=== PATIENT | male | born 1955 | race Caucasian/White ===

== ENCOUNTER 2020-01-27 10:15 | Day surgery (SDC) | payer MEDICARE, OTHER ==
[2020-01-27] VITALS (12 sets, daily range): BP systolic 85–105; BP diastolic 44–75
[~2020-01-27] VITALS: Ht 182.9 cm; Wt 109.8 kg
[~2020-01-27 10:15] MED LIST: NORCO10T PO; OXYC40TA39 PO; SERT-153 PO; VAL5T PO; ZOLP5TAB8 PO
[2020-01-27] MEDS ORDERED: MIDAZolam 1mg/ml 10ml vial IV ONE (10:45)
[2020-01-27] MEDS ORDERED: normal saline 1000ml 1,000 ML IV SCH (10:45)
[2020-01-27] MEDS ORDERED: fentaNYL/PF 50MCG/1 ML 2ML syringe IV ONE (10:45)
[2020-01-27 12:02] LABS: BASOPHILS % (AUTO) 0.6 % (0-1); EOSINOPHILS % (AUTO) 0.5 % (0-6); HEMATOCRIT 37.4 % (42.0-52.0); HEMOGLOBIN 11.7 g/dl (14.0-17.9); LYMPHOCYTES # (AUTO) 2.3 X10'3 (1.1-4.8); LYMPHOCYTES % (AUTO) 28.2 % (21-51); MEAN CORPUSCULAR HEMOGLOBIN 23.5 PG (27.0-31.0); MEAN CORPUSCULAR HGB CONC 31.3 g/dL (33.0-36.5); MEAN CORPUSCULAR VOLUME 74.9 FL (78-98); MEAN PLATELET VOLUME 8.2 FL (7.4-10.4); MONOCYTES # (AUTO) 0.4 X10'3 (0-0.9); MONOCYTES % (AUTO) 4.9 % (2-12); NEUTROPHILS # (AUTO) 5.3 X10'3 (1.8-7.7); NEUTROPHILS % (AUTO) 65.8 % (42-75); PLATELET COUNT 339 X10'3 (140-440); RED CELL DISTRIBUTION WIDTH 23.5 % (11.5-14.5)
[2020-01-27 12:12] LABS: ALBUMIN 3.4 G/DL (3.4-5.0); ANION GAP 7 (8-16); BLOOD UREA NITROGEN 12 MG/DL (7-18); BUN/CREATININE RATIO 14.3 (5.4-32.0); CALCIUM 8.8 MG/DL (8.5-10.1); CHLORIDE 108 MMOL/L (99-107); CREATININE 0.84 MG/DL (0.60-1.10); GLUCOSE 100 MG/DL (70-104); POTASSIUM 4.2 MMOL/L (3.5-5.1); SODIUM 141 MMOL/L (135-145); TOTAL CARBON DIOXIDE 26.4 MMOL/L (24-32); eGFR > 90 ML/MIN
[2020-01-27 12:18] LABS: ANISOCYTOSIS 3+; MICROCYTOSIS 1+; PLATELET ESTIMATE NORMAL
[2020-01-27 12:19] LABS: HYPOCHROMASIA 1+; SCHISTOCYTES FEW
[2020-01-27 12:20] LABS: ELLIPTOCYTES 1+
[2020-01-27] MEDS ORDERED: PANT20TA3 PO (12:25)
[2020-01-27] MEDS ORDERED: OLAN7.5T9 PO (12:25)
[2020-01-27] MEDS ORDERED: METO100T14 PO (12:25)
[2020-01-27] MEDS ORDERED: AMPH20TA3 PO ×2 (12:25)
[2020-01-27] MEDS ORDERED: PROP20TA6 PO (12:25)
[2020-01-27] MEDS ORDERED: TEST5GEL2 TOP (12:25)
[2020-01-27] MEDS ORDERED: TRAZ150T78 PO (12:26)
[2020-01-27] MEDS ORDERED: GABA-532 PO (12:26)
[2020-01-27] MEDS ORDERED: APIX5TAB3 PO (12:26)
[2020-01-27] MEDS ORDERED: BACL20TA PO (12:26)
== END 2020-01-27 12:50 | disposition home or self-care (01) ==
LOC: SSTAY O 10:15 → MED 3N 10:21 → SSTAY O 12:50
PROVIDERS: ATTEND Internal Medicine Interventional Cardiology
DX: I48.0 Paroxysmal atrial fibrillation (principal); I48.92 Unspecified atrial flutter; G47.33 Obstructive sleep apnea (adult) (pediatric); I10 Essential (primary) hypertension; E66.9 Obesity, unspecified; Z68.36 Body mass index [BMI] 36.0-36.9, adult; I35.0 Nonrheumatic aortic (valve) stenosis; M19.90 Unspecified osteoarthritis, unspecified site; I27.23 Pulmonary hypertension due to lung diseases and hypoxia; J44.9 Chronic obstructive pulmonary disease, unspecified; F31.9 Bipolar disorder, unspecified; Z98.84 Bariatric surgery status; Z88.8 Allergy status to other drugs, medicaments and biological substances
CPT/HCPCS: 36415; 80048; 85025; 92960; 93005; J2250; J3010; J7030

== ENCOUNTER 2022-10-10 11:26 | Day surgery (SDC) | payer MEDICARE, MEDICAID ==
[2022-10-05 15:46] LABS: BASOPHILS # (AUTO) 0.1 X10'3 (0-0.2); BASOPHILS % (AUTO) 0.9 % (0-1); EOSINOPHILS # (AUTO) 0.1 X10'3 (0-0.9); EOSINOPHILS % (AUTO) 1.2 % (0-6); HEMATOCRIT 36.9 % (42.0-52.0); HEMOGLOBIN 12.1 g/dl (14.0-17.9); LYMPHOCYTES # (AUTO) 1.7 X10'3 (1.1-4.8); LYMPHOCYTES % (AUTO) 21.2 % (21-51); MEAN CORPUSCULAR HEMOGLOBIN 28.1 PG (27.0-31.0); MEAN CORPUSCULAR HGB CONC 32.7 g/dL (33.0-36.5); MEAN CORPUSCULAR VOLUME 85.8 FL (78-98); MEAN PLATELET VOLUME 7.8 FL (7.4-10.4); MONOCYTES # (AUTO) 0.4 X10'3 (0-0.9); MONOCYTES % (AUTO) 5.3 % (2-12); NEUTROPHILS # (AUTO) 5.6 X10'3 (1.8-7.7); NEUTROPHILS % (AUTO) 71.4 % (42-75); PLATELET COUNT 411 X10'3 (140-440); WHITE BLOOD COUNT 7.9 X10'3 (4.5-11.0)
[2022-10-05 15:58] LABS: APTT 32 SECONDS (22-32)
[2022-10-05 16:01] LABS: ALBUMIN 2.7 G/DL (3.4-5.0); ANION GAP 10 (8-16); BLOOD UREA NITROGEN 17 MG/DL (7-18); BUN/CREATININE RATIO 16.5 (5.4-32.0); CALCIUM 8.5 MG/DL (8.5-10.1); CHLORIDE 104 MMOL/L (99-107); CREATININE 1.03 MG/DL (0.60-1.10); GLUCOSE 120 MG/DL (70-104); POTASSIUM 4.7 MMOL/L (3.5-5.1); SODIUM 137 MMOL/L (135-145); TOTAL CARBON DIOXIDE 23.4 MMOL/L (24-32); eGFR 73 ML/MIN
[~2022-10-10] VITALS: Ht 182.9 cm; Wt 95.6 kg
[2022-10-10] VITALS (18 sets, daily range): BP systolic 98–119; BP diastolic 50–78
[~2022-10-10 11:26] MED LIST changes: +AMPH20TA3 PO; +APIX5TAB3 PO; +BACL20TA PO; +GABA-532 PO; +METO100T14 PO; -NORCO10T PO; +OLAN7.5T18 PO; -OXYC40TA39 PO; +PANT20TA18 PO; +PROP20TA6 PO; -SERT-153 PO; +TEST5GEL2 TOP; +TRAZ150T78 PO; -VAL5T PO; -ZOLP5TAB8 PO
[2022-10-10] MEDS ORDERED: fentaNYL/PF 50MCG/1 ML 2ML syringe IV ONE (11:45)
[2022-10-10] MEDS ORDERED: normal saline 1000ml 1,000 ML IV SCH (11:45)
[2022-10-10] MEDS ORDERED: MIDAZolam 1mg/ml 10ml vial IV ONE (11:45)
[2022-10-10] MEDS ORDERED: METO-384 PO (11:49)
[2022-10-10] MEDS ORDERED: OLAN20TA34 PO (11:50)
[2022-10-10] MEDS ORDERED: HYDR50CA PO (11:51)
[2022-10-10] MEDS ORDERED: ARIP5TAB60 PO (11:52)
[2022-10-10] MEDS ORDERED: BENZ2TAB7 PO (11:52)
[2022-10-10] MEDS ORDERED: AMIO200T61 PO (11:53)
[2022-10-10] MEDS ORDERED: SACU1TAB PO (11:54)
[2022-10-10] MEDS ORDERED: SPIR25TA5 PO (11:54)
== END 2022-10-10 15:15 | disposition home or self-care (01) ==
LOC: SSTAY O 11:26
PROVIDERS: ATTEND Student in an Organized Health Care Education/Training Program
DX: I48.91 Unspecified atrial fibrillation (principal); I11.0 Hypertensive heart disease with heart failure; I50.9 Heart failure, unspecified; G47.33 Obstructive sleep apnea (adult) (pediatric); J44.9 Chronic obstructive pulmonary disease, unspecified; I35.0 Nonrheumatic aortic (valve) stenosis; I42.0 Dilated cardiomyopathy; M19.90 Unspecified osteoarthritis, unspecified site; G89.29 Other chronic pain; F31.9 Bipolar disorder, unspecified; I48.92 Unspecified atrial flutter; I27.23 Pulmonary hypertension due to lung diseases and hypoxia; F12.90 Cannabis use, unspecified, uncomplicated; Z88.8 Allergy status to other drugs, medicaments and biological substances; Z98.84 Bariatric surgery status; Z98.890 Other specified postprocedural states; Z96.653 Presence of artificial knee joint, bilateral; Z96.643 Presence of artificial hip joint, bilateral; Z82.49 Family history of ischemic heart disease and other diseases of the circulatory system; Z79.01 Long term (current) use of anticoagulants; Z79.899 Other long term (current) drug therapy; Z87.891 Personal history of nicotine dependence
CPT/HCPCS: 36415; 80048; 85025; 85610; 85730; 92960; 93005; J7030; A4620

== ENCOUNTER 2022-12-26 08:53 | Day surgery (SDC) | payer MEDICARE, MEDICAID ==
[2022-12-21 16:06] LABS: APTT 36 SECONDS (22-32)
[2022-12-21 16:10] LABS: ALBUMIN 3.2 G/DL (3.4-5.0); ANION GAP 8 (8-16); BLOOD UREA NITROGEN 13 MG/DL (7-18); BUN/CREATININE RATIO 15.7 (5.4-32.0); CHLORIDE 103 MMOL/L (99-107); CHOL/HDL RATIO 3.1 (0.00-4.99); CHOLESTEROL 177 MG/DL (0-200); CREATININE 0.83 MG/DL (0.60-1.10); GLUCOSE 89 MG/DL (70-104); HDL CHOLESTEROL 57 MG/DL (35-60); LDL CHOLESTEROL 105 MG/DL (50-100); POTASSIUM 3.9 MMOL/L (3.5-5.1); SODIUM 138 MMOL/L (135-145); TOTAL CARBON DIOXIDE 27.4 MMOL/L (24-32); TRIGLYCERIDES 44 MG/DL (20-135); eGFR > 90 ML/MIN
[2022-12-21 16:20] LABS: BASOPHILS % (AUTO) 0.6 % (0-1); EOSINOPHILS # (AUTO) 0.1 X10'3 (0-0.9); EOSINOPHILS % (AUTO) 1.3 % (0-6); HEMATOCRIT 37.4 % (42.0-52.0); HEMOGLOBIN 12.4 g/dl (14.0-17.9); LYMPHOCYTES # (AUTO) 1.7 X10'3 (1.1-4.8); LYMPHOCYTES % (AUTO) 19.3 % (21-51); MEAN CORPUSCULAR HEMOGLOBIN 28.9 PG (27.0-31.0); MEAN CORPUSCULAR HGB CONC 33.1 g/dL (33.0-36.5); MEAN CORPUSCULAR VOLUME 87.3 FL (78-98); MONOCYTES # (AUTO) 0.4 X10'3 (0-0.9); MONOCYTES % (AUTO) 4.1 % (2-12); NEUTROPHILS # (AUTO) 6.5 X10'3 (1.8-7.7); NEUTROPHILS % (AUTO) 74.7 % (42-75); PLATELET COUNT 413 X10'3 (140-440); RED BLOOD COUNT 4.29 X10'6 (4.70-6.10); RED CELL DISTRIBUTION WIDTH 18.9 % (11.5-14.5); WHITE BLOOD COUNT 8.6 X10'3 (4.5-11.0)
[2022-12-21 16:58] LABS: ANISOCYTOSIS 2+; ELLIPTOCYTES FEW; PLATELET ESTIMATE NORMAL
[~2022-12-26] VITALS: Ht 182.9 cm; Wt 86.9 kg
[2022-12-26] VITALS (9 sets, daily range): BP systolic 111–147; BP diastolic 67–93
[~2022-12-26 08:53] MED LIST changes: +AMIO200T61 PO; +ARIP5TAB60 PO; +BENZ2TAB7 PO; +HYDR50CA PO; +METO-384 PO; -METO100T14 PO; +OLAN20TA34 PO; -OLAN7.5T18 PO; -PROP20TA6 PO; +SACU1TAB PO; +SPIR25TA5 PO; -TRAZ150T78 PO
[2022-12-26] MEDS ORDERED: LORazepam 0.5 MG tablet PO PRN (09:15)
[2022-12-26] MEDS ORDERED: normal saline 1,000 ML IV SCH (09:15)
[2022-12-26] MEDS ORDERED: diphenhydrAMINE 25mg capsule PO PRN (09:15)
[2022-12-26] MEDS ORDERED: EMPA10TA PO (09:24)
[2022-12-26] MEDS ORDERED: CYAN250010 INJ (09:25)
[2022-12-26] MEDS ORDERED: verapamil 2.5 mg/ml inj IV ONE (10:37)
[2022-12-26] MEDS ORDERED: midazolam 1 mg/ML 2ml injection ONE ×2 (10:37→11:33)
[2022-12-26] MEDS ORDERED: LIDOcaine 1% (10mg/ml) 2ml vial ONE (10:37)
[2022-12-26] MEDS ORDERED: nitroGLYCERIN-Tridil 50MG/D5W 250 ML IV ONE (10:37)
[2022-12-26] MEDS ORDERED: fentaNYL/PF 50MCG/1 ML 2ML syringe ONE ×2 (10:37→11:33)
[2022-12-26] MEDS ORDERED: heparin 1,000unit/ml 10ml vial 10 ML ONE (10:38)
[2022-12-26] MEDS ORDERED: iohexol 350MG/ML 100ml bottle IV ONE (10:38)
[2022-12-26] MEDS ORDERED: heparin 1,000 UNITS/NS 500ml 500 ML ONE (11:17)
[2022-12-26] MEDS ORDERED: LIDOcaine 1% 30ml preserv. free vial ONE (11:37)
[2022-12-26] MEDS ORDERED: HYDROmorphone 1 mg/ml syringe ONE (11:48)
[2022-12-26 12:44] LABS: ISTAT HGB ART 12.6 g/dl (14.0-17.9); ISTAT Hct ART 37 %PCV (42-52); ISTAT O2 SATURATION ARTERIAL 91 % (95-98); ISTAT SOURCE ART
[2022-12-26] MEDS ORDERED: HYDROcodone/acetaminophen 10/325mg tab PO PRN (12:55)
[2022-12-26] MEDS ORDERED: HYDROcodone/acetaminophen 5mg/325mg tablet PO PRN (12:55)
[2022-12-26 13:54] LABS: ISTAT Hct MIX 35 %PCV (42-52); ISTAT O2 SATURATION MIX VENOUS 65 % (60-80); ISTAT SOURCE VEN
== END 2022-12-26 15:17 | disposition home or self-care (01) ==
LOC: SSTAY O 08:53
PROVIDERS: ATTEND Student in an Organized Health Care Education/Training Program
DX: I08.3 Combined rheumatic disorders of mitral, aortic and tricuspid valves (principal); J44.9 Chronic obstructive pulmonary disease, unspecified; G47.33 Obstructive sleep apnea (adult) (pediatric); I11.0 Hypertensive heart disease with heart failure; I50.9 Heart failure, unspecified; I65.29 Occlusion and stenosis of unspecified carotid artery; I42.0 Dilated cardiomyopathy; I48.0 Paroxysmal atrial fibrillation; F31.9 Bipolar disorder, unspecified; I27.20 Pulmonary hypertension, unspecified; F17.290 Nicotine dependence, other tobacco product, uncomplicated; G89.29 Other chronic pain; E78.5 Hyperlipidemia, unspecified; Z98.84 Bariatric surgery status; Z79.899 Other long term (current) drug therapy; Z79.01 Long term (current) use of anticoagulants; Z88.8 Allergy status to other drugs, medicaments and biological substances
CPT/HCPCS: 36415; 76937; 80048; 80061; 82803; 85014; 85025; 85610; 85730; 93005; 93456; 99152; 99153; C1751; C1769; C1894; J1170; J1644; J2250; J3010; J3490; J7030; Q0163; Q9967; 85008; A6258; A6402

== ENCOUNTER 2023-05-15 11:47 | Day surgery (SDC) | payer MEDICARE, MEDICAID ==
[2023-05-11 12:16] LABS: BASOPHILS # (AUTO) 0.1 X10'3 (0-0.2); BASOPHILS % (AUTO) 0.7 % (0-1); EOSINOPHILS # (AUTO) 0.2 X10'3 (0-0.9); EOSINOPHILS % (AUTO) 2.2 % (0-6); HEMATOCRIT 41.3 % (42.0-52.0); HEMOGLOBIN 13.8 g/dl (14.0-17.9); MEAN CORPUSCULAR HEMOGLOBIN 30.4 PG (27.0-31.0); MEAN CORPUSCULAR HGB CONC 33.5 g/dL (33.0-36.5); MEAN CORPUSCULAR VOLUME 90.7 FL (78-98); MEAN PLATELET VOLUME 8.3 FL (7.4-10.4); MONOCYTES # (AUTO) 0.5 X10'3 (0-0.9); MONOCYTES % (AUTO) 5.1 % (2-12); NEUTROPHILS # (AUTO) 7.7 X10'3 (1.8-7.7); PLATELET COUNT 243 X10'3 (140-440); RED BLOOD COUNT 4.55 X10'6 (4.70-6.10); RED CELL DISTRIBUTION WIDTH 14.5 % (11.5-14.5); WHITE BLOOD COUNT 10.6 X10'3 (4.5-11.0)
[2023-05-11 12:23] LABS: ALBUMIN 3.4 G/DL (3.4-5.0); ANION GAP 8 (8-16); BLOOD UREA NITROGEN 16 MG/DL (7-18); BUN/CREATININE RATIO 15.7 (10.0-20.0); CALCIUM 9.4 MG/DL (8.5-10.1); CHLORIDE 103 MMOL/L (99-107); CREATININE 1.02 MG/DL (0.60-1.10); GLUCOSE 100 MG/DL (70-104); POTASSIUM 4.5 MMOL/L (3.5-5.1); SODIUM 138 MMOL/L (135-145); TOTAL CARBON DIOXIDE 26.9 MMOL/L (24-32); eGFR 73 ML/MIN
[2023-05-11 12:26] LABS: APTT 33 SECONDS (22-32)
[2023-05-14 12:05] VITALS: BP 111/69; PULSE 95; RESP 16; TEMP 98.2; O2SAT 97
[2023-05-15] VITALS (10 sets, daily range): BP systolic 117–135; BP diastolic 63–83; PULSE 69–92; RESP 14–16; O2SAT 96–99
[~2023-05-15] VITALS: Ht 180.3 cm; Wt 96.9 kg
[~2023-05-15 11:47] MED LIST changes: +AMI200T PO; -AMIO200T61 PO; +BENZ2TAB65 PO; -BENZ2TAB7 PO; +CALC200T PO; +CHOL10006 PO; +DEXT20TA6 PO; +EMPA10TA PO; +FERR-119 PO; -GABA-532 PO; -HYDR50CA PO; -METO-384 PO; +METO-395 PO; +MULT-1074 PO; -TEST5GEL2 TOP; +VITA400T10 PO; +VITAMIN B12 INJ IJ; +ZINC50CA2 PO
[2023-05-15] MEDS ORDERED: fentaNYL/PF 50MCG/1 ML 2ML syringe IV ONE (12:05)
[2023-05-15] MEDS ORDERED: normal saline 1000ml 1,000 ML IV SCH (12:05)
[2023-05-15] MEDS ORDERED: MIDAZolam 1mg/ml 10ml vial IV ONE (12:05)
== END 2023-05-15 14:15 | disposition home or self-care (01) ==
LOC: SSTAY O 11:47
PROVIDERS: ATTEND Student in an Organized Health Care Education/Training Program
DX: I48.92 Unspecified atrial flutter (principal); I48.0 Paroxysmal atrial fibrillation; I42.0 Dilated cardiomyopathy; G89.29 Other chronic pain; F31.9 Bipolar disorder, unspecified; I27.20 Pulmonary hypertension, unspecified; J44.9 Chronic obstructive pulmonary disease, unspecified; I11.0 Hypertensive heart disease with heart failure; I50.9 Heart failure, unspecified; I08.3 Combined rheumatic disorders of mitral, aortic and tricuspid valves; G47.33 Obstructive sleep apnea (adult) (pediatric); Z88.8 Allergy status to other drugs, medicaments and biological substances; Z79.899 Other long term (current) drug therapy; Z79.01 Long term (current) use of anticoagulants; Z86.73 Personal history of transient ischemic attack (TIA), and cerebral infarction without residual deficits
CPT/HCPCS: 36415; 80048; 85025; 85610; 85730; 92960; 93005; J2250; J3010; J7030; A4620

== ENCOUNTER 2024-06-05 10:18 | Day surgery (SDC) | payer MEDICARE, MEDICAID ==
[2024-06-05] VITALS (8 sets, daily range): BP systolic 122–141; BP diastolic 58–70; PULSE 59–68; RESP 7–27; TEMP 97.1; O2SAT 92–99
[~2024-06-05] VITALS: Ht 175.3 cm; Wt 108.2 kg
[2024-06-05] MEDS: cefazolin 2gm/D5W 100mL 100 ML IV ONE (05:30)
[2024-06-05] MEDS: DOCUMENT DATE & TIME OF BETA-BLOCKER PO ONE (05:30)
[~2024-06-05 10:18] MED LIST changes: -ARIP5TAB60 PO; +BACL10TA2 PO; -BACL20TA PO; -BENZ2TAB65 PO; -CALC200T PO; -CHOL10006 PO; -DEXT20TA6 PO; -FERR-119 PO; -MULT-1074 PO; +OLAN20TA19 PO; -OLAN20TA34 PO; +TRAZ-256 PO; +VALB80CA PO; -VITA400T10 PO; -VITAMIN B12 INJ IJ; -ZINC50CA2 PO; +[UNRECOGNIZED DRUG - CODE] PO
[2024-06-05] MEDS: famotidine 20mg tablet PO ONE (11:39)
[2024-06-05] MEDS: ringers solution, lacted 1,000 ML IV SCH (11:40)
[2024-06-05 12:03] LABS: BASOPHILS # (AUTO) 0.1 X10'3 (0-0.2); BASOPHILS % (AUTO) 0.6 % (0-1); EOSINOPHILS # (AUTO) 0.1 X10'3 (0-0.9); EOSINOPHILS % (AUTO) 1.2 % (0-6); LYMPHOCYTES % (AUTO) 19.4 % (21-51); MEAN CORPUSCULAR HEMOGLOBIN 31.7 PG (27.0-31.0); MEAN CORPUSCULAR HGB CONC 33.4 g/dL (33.0-36.5); MEAN CORPUSCULAR VOLUME 94.9 FL (78-98); MEAN PLATELET VOLUME 7.7 FL (7.4-10.4); MONOCYTES # (AUTO) 0.5 X10'3 (0-0.9); NEUTROPHILS # (AUTO) 7.6 X10'3 (1.8-7.7); NEUTROPHILS % (AUTO) 73.8 % (42-75); PRE OP HEMATOCRIT 38.1 % (42.0-52.0); PRE OP HEMOGLOBIN 12.7 g/dL (14.0-17.9); PRE OP PLATELET COUNT 355 X10'3 (140-440); PRE OP WHITE BLOOD COUNT 10.3 10'3 (4.8-10.8); RED BLOOD COUNT 4.01 X10'6 (4.70-6.10)
[2024-06-05 12:13] LABS: ALBUMIN 3.3 G/DL (3.4-5.0); ALBUMIN/GLOBULIN RATIO 0.7 (1.1-1.5); ALKALINE PHOSPHATASE 100 IU/L (46-116); BLOOD UREA NITROGEN 20 MG/DL (7-18); BUN/CREATININE RATIO 24.1 (10.0-20.0); CALCIUM 9.4 MG/DL (8.5-10.1); CHLORIDE 104 MMOL/L (99-107); CREATININE 0.83 MG/DL (0.60-1.10); PRE OP ALT 28 U/L (30-65); PRE OP ANION GAP 8 (8-16); PRE OP AST 30 U/L (10-37); PRE OP BILIRUB, TOTAL 0.3 MG/DL (0.0-1.0); PRE OP GLUCOSE 98 MG/DL (70-104); PRE OP POTASSIUM 4.3 MMOL/L (3.4-5.1); PRE OP SODIUM 138 MMOL/L (135-145); TOTAL CARBON DIOXIDE 26.2 MMOL/L (24-32); TOTAL PROTEIN 7.8 G/DL (6.4-8.2); eCRCL 88 ML/MIN; eGFR > 90 ML/MIN
[2024-06-05] MEDS ORDERED: methylene blue (5mg/ml) 50mg/10ml ampul IV ONE (12:14)
[2024-06-05] MEDS ORDERED: tobramycin sulfate 1.2gm vial ONE (12:14)
[2024-06-05 12:32] LABS: PRE OP PARTIAL THROMB. TIME 28 SECONDS (22-32); PROTHROMBIN TIME 10.9 SECONDS (9.0-12.0)
[2024-06-05] MEDS ORDERED: cloNIDine hcl/PF 100mcg/ml inj ONE (12:46)
[2024-06-05] MEDS ORDERED: HYDROmorphone/PF 0.2 MG/ML SYRINGE IV PRN ×2 (13:35)
[2024-06-05] MEDS ORDERED: morphine 2 MG/ML inj. syringe IV PRN (13:35)
[2024-06-05] MEDS ORDERED: proCHLORperazine 10 MG/2 ml inj IV PRN (13:35)
[2024-06-05] MEDS ORDERED: labetalol 20mg/4ml (5mg/ml) syringe IV PRN (13:35)
[2024-06-05] MEDS ORDERED: ringers solution, lacted 1,000 ML IV SCH (13:35)
[2024-06-05] MEDS ORDERED: morphine 4 MG/ML inj SYRINge IV PRN (13:35)
[2024-06-05] MEDS ORDERED: hydrALAZINE 20mg/ml inj. IV PRN (13:35)
[2024-06-05] MEDS ORDERED: sevoflurane 250ml liquid IH ONE (13:54)
[2024-06-05] MEDS ORDERED: midazolam 1 mg/ML 2ml injection ONE (14:01)
[2024-06-05] MEDS ORDERED: fentaNYL /PF 50mcg/ml 5ml ampule ONE (14:29)
[2024-06-05] MEDS ORDERED: propofol inj 20 ML IV ONE (14:29)
[2024-06-05] MEDS ORDERED: ROPIVAcaine 0.5% (5mg/ml) 30ml vial ONE (14:29)
[2024-06-05] MEDS ORDERED: LIDOcaine 2% (20mg/ml) 5ml vial ONE (14:29)
[2024-06-05] MEDS ORDERED: LIDOcaine 1%/PF 5ML 10 MG/ML VIAL ONE (14:30)
[2024-06-05] MEDS ORDERED: rocuronium 10mg/ml inj IV ONE (14:38)
[2024-06-05] MEDS ORDERED: dexamethasone sod phosphate 4mg/ml inj. ONE (14:38)
[2024-06-05] MEDS ORDERED: ondansetron/PF 4mg/2ml inj ONE (14:38)
[2024-06-05] MEDS ORDERED: diphenhydrAMINE 50 mg/ml inj ONE (14:52)
[2024-06-05] MEDS: vancomycin 1,000mg inj ONE (15:24)
[2024-06-05] MEDS ORDERED: glycopyrrolate 0.2mg/ml inj ONE (15:49)
[2024-06-05] MEDS ORDERED: neostigmine methylsulfate 1 MG/ML 10ml vial ONE (15:49)
[2024-06-05] MEDS: acetaminophen 1,000mg/100ml IV 100 ML IV ONE (16:20)
[2024-06-05] MEDS: meperidine/PF 25mg/ml syringe IV PRN (16:30)
== END 2024-06-05 17:19 | disposition home or self-care (01) ==
LOC: PAS 10:18
PROVIDERS: ATTEND Specialist
DX: M96.842 Postprocedural seroma of a musculoskeletal structure following a musculoskeletal system procedure (principal); G89.18 Other acute postprocedural pain; I48.91 Unspecified atrial fibrillation; J44.9 Chronic obstructive pulmonary disease, unspecified; E66.9 Obesity, unspecified; K21.9 Gastro-esophageal reflux disease without esophagitis; I50.9 Heart failure, unspecified; G47.33 Obstructive sleep apnea (adult) (pediatric); F31.9 Bipolar disorder, unspecified; M19.90 Unspecified osteoarthritis, unspecified site; Z87.891 Personal history of nicotine dependence; Z79.01 Long term (current) use of anticoagulants; Z79.2 Long term (current) use of antibiotics; Z79.4 Long term (current) use of insulin; Z79.899 Other long term (current) drug therapy; Z95.4 Presence of other heart-valve replacement; Z96.643 Presence of artificial hip joint, bilateral; Z96.653 Presence of artificial knee joint, bilateral; Z98.890 Other specified postprocedural states; Z68.35 Body mass index [BMI] 35.0-35.9, adult; Z88.8 Allergy status to other drugs, medicaments and biological substances; Z82.49 Family history of ischemic heart disease and other diseases of the circulatory system; Z83.3 Family history of diabetes mellitus
CPT/HCPCS: 23040; 36415; 64415; 71045; 73030; 80053; 82948; 85025; 85610; 85730; 87070; 87075; A4565; A4618; A6402; A6455; A7000; J0131; J0690; J0735; J1100; J1200; J2001; J2175; J2250; J2704; J2710; J2795; J3010; J3370; J3490; J7030; J7120; Z7506; Z7508; Z7512; Z7610; A6449; J2405; J3260; Q9968

== ENCOUNTER 2024-12-05 13:55 | Outpatient (CLI) | payer MEDICARE, MEDICAID ==
[2024-12-05 14:52] VITALS: PULSE 62; RESP 12; O2SAT 98
== END 2024-12-05 23:59 | disposition home or self-care (01) ==
LOC: RT 13:55
PROVIDERS: ATTEND Physician Assistant
DX: R05.1 Acute cough (principal)
CPT/HCPCS: 94010; 94760